=== PATIENT | male | born 1940 | race Caucasian/White ===

== ENCOUNTER 2017-02-04 09:15 | Emergency (ER) | payer MEDICARE, MEDICAID ==
[~2017-02-04] VITALS: Ht 162.6 cm; Wt 87.5 kg
--- NOTE | 2017-02-04 10:03 | NUR ---
Patient discharged to home in stable conditon. Written and verbal after care instructions given. Patient verbalizes understanding of instructions.
== END 2017-02-04 10:04 | disposition home or self-care (01) ==
LOC: ER 09:15
DX: Z13.89 Encounter for screening for other disorder (principal); F17.210 Nicotine dependence, cigarettes, uncomplicated; Z85.038 Personal history of other malignant neoplasm of large intestine; Z92.21 Personal history of antineoplastic chemotherapy
CPT/HCPCS: A4663

== ENCOUNTER 2019-10-14 18:10 | Emergency (ER) | payer MEDICARE, OTHER ==
[~2019-10-14] VITALS: Ht 167.6 cm; Wt 99.8 kg
[2019-10-14] MEDS ORDERED: HYDR-4384 PO (18:27)
--- NOTE | 2019-10-14 18:32 | NUR ---
Dr. Avila at bedside for MSE
[2019-10-14] MEDS ORDERED: MORPHINE SULFATE 4 MG/1 ML DISP.SYRIN IV ONE (18:45)
[2019-10-14 18:48] LABS: BASOPHILS % (AUTO) 0.5 % (0.0-2.0); HEMATOCRIT 37.3 % (36.7-47.1); HEMOGLOBIN 12.4 g/dL (12.5-16.3); LYMPHOCYTES # (AUTO) 0.5 K/uL (20.0-40.0); LYMPHOCYTES % (AUTO) 5.8 % (20.5-51.5); MEAN CORPUSCULAR HEMOGLOBIN 28.1 uug (23.8-33.4); MEAN CORPUSCULAR HGB CONC 33 g/dL (32.5-36.3); MEAN CORPUSCULAR VOLUME 84.3 fL (73.0-96.2); MONOCYTES # (AUTO) 0.6 K/uL (2.0-10.0); MONOCYTES % (AUTO) 7.4 % (0.0-11.0); NEUTROPHILS % (AUTO) 86.3 % (38.5-71.5); PLATELET COUNT (AUTO) 164 K/uL (152-348); RED BLOOD CELL COUNT(AUTO) 4.42 MIL/uL (4.06-5.63); WHITE BLOOD COUNT (AUTO) 8.1 K/uL (3.6-10.2)
[2019-10-14 18:56] LABS: CREATININE 1.2 mg/dL (0.6-1.3); POTASSIUM 4.5 mmol/L (3.5-5.1)
[2019-10-14] MEDS ORDERED: MORPHINE SULFATE 4 MG/1 ML DISP.SYRIN ONE (18:58)
[2019-10-14 19:06] LABS: BILIRUBIN,DIRECT 0.4 mg/dL (0.0-0.2); BILIRUBIN,TOTAL 1.3 mg/dL (0.2-1.0)
[2019-10-14 19:44] LABS: *BILIRUBIN,URIN 1+ (NEGATIVE); *BLOOD, URINE 1+ (NEGATIVE); *CLARITY,URINE CLEAR (CLEAR); *KETONES,URINE 1+ (NEGATIVE); *UROBILINOGEN,URINE >=8.0 E.U./dl (NORMAL); LEUKOCYTE ESTERASE ,URINE NEGATIVE (NEGATIVE); NITRITE, URINE NEGATIVE (NEGATIVE); PH,URINE 5.5 (5.0-8.0); UGLUCOSE NEGATIVE (NEGATIVE)
[2019-10-14 19:45] LABS: *COLOR,URINE AMBER (YELLOW)
[2019-10-14] MEDS ORDERED: SWABABLE VALVE TRANSFER SET EA MC ONE (20:30)
[2019-10-14] MEDS ORDERED: IV NORMAL SALINE 250 ML IV ONE (20:31)
[2019-10-14] MEDS ORDERED: IOHEXOL 350 100 ML INFUS..BTL ONE (20:31)
[2019-10-14 21:50] LABS: BACTERIA,URINE NONE SEEN /HPF (NONE SEEN); SQUAMOUS EPITHELIAL CELL,UR FEW /HPF (NONE SEEN); WBC,URINE 0-3 /HPF (0-3)
[2019-10-14] MEDS ORDERED: KETOROLAC TROMETHAMINE 30 MG INJ ONE (22:24)
[2019-10-14] MEDS ORDERED: KETOROLAC TROMETHAMINE 30 MG INJ IVP ONE (22:30)
--- NOTE | 2019-10-14 22:40 | NUR ---
Patient's outside of ED to take patient home
--- NOTE | 2019-10-14 22:40 | NUR ---
IV removed. Catheter intact and site benign. Pressure and 4x4 gauze applied to site. No bleeding noted. Patient discharged to home in stable condition. Written and verbal after care instructions given. Patient verbalizes understanding of instructions. Stressed follow up or return to ER for worsening s/s. Patient ambulated with steady gait. NAD noted
[2019-10-14 22:41] VITALS: BP 129/66
== END 2019-10-14 22:40 | disposition home or self-care (01) ==
LOC: ER 18:10
DX: M54.9 Dorsalgia, unspecified (principal); R91.8 Other nonspecific abnormal finding of lung field; F17.210 Nicotine dependence, cigarettes, uncomplicated; R94.31 Abnormal electrocardiogram [ECG] [EKG]; Z85.038 Personal history of other malignant neoplasm of large intestine; G89.29 Other chronic pain; M19.90 Unspecified osteoarthritis, unspecified site
CPT/HCPCS: 36415; 70030-TC; 71045; 71275; 83690; 85025; 93005; A4663; J1885; J2270; J7050; Q9967

== ENCOUNTER 2021-02-14 21:55 | Inpatient (IN) | payer MEDICARE, OTHER ==
[~2021-02-14] VITALS: Ht 165.1 cm; Wt 79.4 kg
--- NOTE | 2021-02-14 20:15 | NUR ---
Admitted patient to rehab from [facility].AALOx3.On Ra.No s/s of acute distress noted. Denies pain at this time. Iv noted on Rt hand patent and intact .Blackman catheter in place. Draining well.Assessment done. VsLary Castro notified of patient's admission.Safety measures in place. Call light with in reach. Will continue to monitor.
[~2021-02-14 21:55] MED LIST: HYDR-4384 PO
[2021-02-14] MEDS ORDERED: FINA5TAB11 PO (22:32)
[2021-02-14] MEDS ORDERED: NICO-671 TP (22:32)
[2021-02-14] MEDS ORDERED: ALPR1TAB7 PO (22:32)
[2021-02-14] MEDS ORDERED: HYDR-3972 PO (22:32)
[2021-02-14] MEDS ORDERED: MAGNESIUM HYDROXIDE 30 ML LIQUID UDC PO PRN (22:45)
[2021-02-14] MEDS ORDERED: ZOLPIDEM 5 MG TABLET PO PRN (22:45)
[2021-02-14] MEDS ORDERED: ONDANSETRON 4 MG/2 ML VIAL IV PRN (22:45)
[2021-02-14] MEDS ORDERED: Z GUARD REMEDY PASTE 57 GM TUBE TOP PRN (22:45)
[2021-02-15] MEDS ORDERED: TAMS-3 PO (01:36)
[2021-02-15] MEDS: ALPRAZOLAM 0.5 MG TABLET PO SCH ×2 (02:17→20:37)
--- NOTE | 2021-02-15 03:45 | NUR ---
Patient awake and requesting for his Xanax.Stated he used to take it at bedtime.Patient alson noted with bright red stool x1.Denies pain N.Katlyn Bridges notified new order received noted and carried out.Stool collected for OB and sent to lab.
[2021-02-15 04:00] VITALS: BP 127/64
[2021-02-15] MEDS: PANTOPRAZOLE SODIUM 40 MG TABLET.DR PO SCH (06:28)
[2021-02-15] MEDS ORDERED: ZOLPIDEM 5 MG TABLET PO PRN (06:45)
[2021-02-15 07:47] VITALS: BP 107/71
[2021-02-15 08:00] VITALS: BP 159/77
[2021-02-15 09:08] LABS: HEMATOCRIT 28.5 % (36.7-47.1); MEAN CORPUSCULAR HEMOGLOBIN 28.7 uug (23.8-33.4); PLATELET COUNT (AUTO) 216 K/uL (152-348)
[2021-02-15 09:34] LABS: CARBON DIOXIDE 24 mmol/L (21-32); CHLORIDE 105 mmol/L (98-107); CREATININE 1.8 mg/dL (0.6-1.3); GLUCOSE 86 mg/dL (74-106); MAGNESIUM 1.9 mg/dL (1.8-2.4); PHOSPHOROUS 2.9 mg/dL (2.5-4.9); POTASSIUM 3.7 mmol/L (3.5-5.1); UREA NITROGEN, BLOOD 11 mg/dL (7-18)
[2021-02-15 10:57] LABS: *OCCULT BLOOD STOOL POSITIVE (NEGATIVE)
[2021-02-15 12:44] LABS: TRIGLYCERIDES 168 MG/DL (30-150)
[2021-02-15 12:45] LABS: CHOLESTEROL 138 mg/dL (<200); HDL CHOLESTEROL 21 mg/dL (40-60)
[2021-02-15 15:51] VITALS: BP 145/76
--- NOTE | 2021-02-15 18:18 | NUR ---
Noted with blood clots to BMx2, Dr Zacarias made aware. Denies pain or discomfort. No distress identified. Kept call light within reach. All due meds given. All needs attended. Safety measures maintained. Aspiration precaution maintained. Will endorse for continuity of care.
[2021-02-15] MEDS ORDERED: HYDROCODONE/APAP 5-325MG TABLET PO PRN (19:45)
[2021-02-15 20:00] VITALS: BP 159/77
[2021-02-15] MEDS: DOCUSATE SODIUM 100 MG CAPSULE PO SCH (20:37)
[2021-02-15] MEDS: TAMSULOSIN HCL 0.4 MG CAP.SR.24H PO SCH (20:38)
[2021-02-15] MEDS ORDERED: Medication Not On Formulary EA (Alprazolam (Xanax) 1 MG) PO SCH (21:00)
[2021-02-16 06:02] VITALS: BP 125/63
[2021-02-16] MEDS: PANTOPRAZOLE SODIUM 40 MG TABLET.DR PO SCH (06:06)
--- NOTE | 2021-02-16 06:14 | NUR ---
No signs of bleeding identified during the shift. Denies pain. No distress noted. Kept call light within reach. Frequent visual check. Safety precaution maintained. All due meds given. All needs attended. Will endorse to the next shift for continuity of care.
[2021-02-16 08:00] VITALS: BP 126/69
[2021-02-16] MEDS: NICOTINE 14 MG/24HR PATCH TD SCH (09:45)
[2021-02-16] MEDS: FINASTERIDE 5 MG TABLET PO SCH (09:45)
[2021-02-16 10:35] LABS: HEMATOCRIT 29.5 % (36.7-47.1); MEAN CORPUSCULAR HEMOGLOBIN 28.6 uug (23.8-33.4); MEAN CORPUSCULAR VOLUME 87.7 fL (73.0-96.2); PLATELET COUNT (AUTO) 218 K/uL (152-348)
[2021-02-16 10:48] LABS: IRON, SERUM 37 ug/dL (50-175)
[2021-02-16 11:18] LABS: ALANINE AMINOTRANSFERASE 6 U/L (16-63); ALKALINE PHOSPHATASE 71 U/L (50-136); ASPARTATE AMINOTRANSFERASE 16 U/L (15-37); BILIRUBIN,TOTAL 0.4 mg/dL (0.2-1.0); CARBON DIOXIDE 23 mmol/L (21-32); CHLORIDE 105 mmol/L (98-107); CREATININE 1.8 mg/dL (0.6-1.3); GLUCOSE 118 mg/dL (74-106); MAGNESIUM 2.3 mg/dL (1.8-2.4); PHOSPHOROUS 3.5 mg/dL (2.5-4.9); POTASSIUM 3.4 mmol/L (3.5-5.1); TOTAL PROTEIN, SERUM 7.3 g/dL (6.4-8.2); UREA NITROGEN, BLOOD 14 mg/dL (7-18)
[2021-02-16 11:44] LABS: THYROID STIMULATING HORMONE 1.085 mIU/mL (0.358-3.740)
[2021-02-16] MEDS: SOD FERRIC GLUC COMPLX/SUCROSE 125 MG in IV NORMAL SALINE 100 ML IV SCH (15:19)
--- NOTE | 2021-02-16 15:51 | NUR ---
Nursing - Attends and participated in his therapy, reviewed safety, monitored needs, moser care , urine slightly cloudy , adequate fluid intake.
[2021-02-16 16:47] VITALS: BP 160/82
[2021-02-16 20:00] VITALS: BP 130/57
[2021-02-16] MEDS: ALPRAZOLAM 0.5 MG TABLET PO SCH (20:52)
[2021-02-16] MEDS: DOCUSATE SODIUM 100 MG CAPSULE PO SCH (20:52)
[2021-02-16] MEDS: TAMSULOSIN HCL 0.4 MG CAP.SR.24H PO SCH (20:52)
[2021-02-17 04:48] VITALS: BP 127/62
[2021-02-17] MEDS: PANTOPRAZOLE SODIUM 40 MG TABLET.DR PO SCH (06:27)
[2021-02-17 08:15] VITALS: BP 135/60
[2021-02-17] MEDS: NICOTINE 14 MG/24HR PATCH TD SCH (09:48)
[2021-02-17] MEDS: FINASTERIDE 5 MG TABLET PO SCH (09:48)
--- NOTE | 2021-02-17 13:30 | NUR ---
INDIVIDUALIZED PLAN OF CARE
[2021-02-17] MEDS: SOD FERRIC GLUC COMPLX/SUCROSE 125 MG in IV NORMAL SALINE 100 ML IV SCH (14:10)
[2021-02-17 16:02] VITALS: BP 130/71
[2021-02-17] MEDS: GLUCERNA SHAKE VANILLA 237 ML CAN PO SCH (17:00)
--- NOTE | 2021-02-17 18:16 | NUR ---
Patient in bed alert and oriented x 3 Farsi speaking and able to speak a little Rwandan. Pleasant and cooperative upon assessment. All needs met in a timely manner. All due meds given per MD order. Blackman Catheter intact. Placed call light within reach. Left upper arm IV access intact. Patient in room air with no s/s of distress.
[2021-02-17 20:06] VITALS: BP 143/50
[2021-02-17] MEDS: ALPRAZOLAM 0.5 MG TABLET PO SCH (20:15)
[2021-02-17] MEDS: TAMSULOSIN HCL 0.4 MG CAP.SR.24H PO SCH (20:15)
[2021-02-17] MEDS: DOCUSATE SODIUM 100 MG CAPSULE PO SCH (20:15)
[2021-02-18 04:06] VITALS: BP 126/44
[2021-02-18] MEDS: PANTOPRAZOLE SODIUM 40 MG TABLET.DR PO SCH (06:01)
[2021-02-18 06:49] LABS: HEMATOCRIT 28.6 % (36.7-47.1); MEAN CORPUSCULAR HEMOGLOBIN 28.6 uug (23.8-33.4); MEAN CORPUSCULAR VOLUME 86.7 fL (73.0-96.2); PLATELET COUNT (AUTO) 238 K/uL (152-348)
[2021-02-18 07:05] LABS: ALANINE AMINOTRANSFERASE 6 U/L (16-63); ALKALINE PHOSPHATASE 73 U/L (50-136); ASPARTATE AMINOTRANSFERASE 16 U/L (15-37); BILIRUBIN,TOTAL 0.4 mg/dL (0.2-1.0); CARBON DIOXIDE 28 mmol/L (21-32); CHLORIDE 105 mmol/L (98-107); CREATININE 1.7 mg/dL (0.6-1.3); GLUCOSE 86 mg/dL (74-106); POTASSIUM 3.6 mmol/L (3.5-5.1); TOTAL PROTEIN, SERUM 7.2 g/dL (6.4-8.2); UREA NITROGEN, BLOOD 15 mg/dL (7-18)
[2021-02-18 08:00] VITALS: BP 110/49
[2021-02-18] MEDS: FINASTERIDE 5 MG TABLET PO SCH (11:17)
[2021-02-18] MEDS: NICOTINE 14 MG/24HR PATCH TD SCH (11:17)
[2021-02-18] MEDS: GLUCERNA SHAKE VANILLA 237 ML CAN PO SCH ×2 (11:17→16:37)
[2021-02-18] MEDS: SOD FERRIC GLUC COMPLX/SUCROSE 125 MG in IV NORMAL SALINE 100 ML IV SCH (14:00)
[2021-02-18 16:00] VITALS: BP 145/67
--- NOTE | 2021-02-18 16:32 | NUR ---
unable to administer 1400 iron IV unable to flush midline
--- NOTE | 2021-02-18 16:33 | NUR ---
midline nurse coming at 1800 will have her assess the line
[2021-02-18] MEDS: TAMSULOSIN HCL 0.4 MG CAP.SR.24H PO SCH (20:09)
[2021-02-18] MEDS: ALPRAZOLAM 0.5 MG TABLET PO SCH (20:09)
[2021-02-18] MEDS: DOCUSATE SODIUM 100 MG CAPSULE PO SCH (20:09)
[2021-02-18 20:35] VITALS: BP 148/75
[2021-02-19 04:44] VITALS: BP 115/59
[2021-02-19] MEDS: PANTOPRAZOLE SODIUM 40 MG TABLET.DR PO SCH (06:01)
[2021-02-19 08:00] VITALS: BP 114/70
--- NOTE | 2021-02-19 08:00 | NUR ---
Received awake and alert. No acute distress. GALILEO midline noted intact. Denies pain or sob. Comfortable. Call light in reach. Safety precautions in place. Will cont to monitor.
[2021-02-19] MEDS: NICOTINE 14 MG/24HR PATCH TD SCH (08:43)
[2021-02-19] MEDS: FINASTERIDE 5 MG TABLET PO SCH (08:44)
[2021-02-19] MEDS: GLUCERNA SHAKE VANILLA 237 ML CAN PO SCH ×2 (08:44→17:09)
[2021-02-19] MEDS: SOD FERRIC GLUC COMPLX/SUCROSE 125 MG in IV NORMAL SALINE 100 ML IV SCH (14:46)
[2021-02-19 16:21] VITALS: BP 127/79
--- NOTE | 2021-02-19 18:22 | NUR ---
Resting in bed. No acute distress. GALILEO midline intact and patent. Spoke with dtalexis Fields today and updated on condition. Wanted to talk to Dr. Bethea re discharge, MD aware and phone number provided. Pt is comfortably watching tv. Safety precautions in reach. Kept comfortable. Call light in reach.
[2021-02-19 20:00] VITALS: BP 130/64
--- NOTE | 2021-02-19 20:00 | NUR ---
PATIENT AWAKE IN BED. WATCHING TV. A/O X3. DENIES PAIN. DENIES SOB. VS WNL. MID-LINE NOTED TO RIGHT UPPER ARM. CALL LIGHT IN REACH. ALL NEEDS ATTENDED. WILL CONTINUE TO MONITOR AND ASSESS.
[2021-02-19] MEDS: TAMSULOSIN HCL 0.4 MG CAP.SR.24H PO SCH (20:17)
[2021-02-19] MEDS: DOCUSATE SODIUM 100 MG CAPSULE PO SCH (20:17)
[2021-02-19] MEDS: ALPRAZOLAM 0.5 MG TABLET PO SCH (20:17)
[2021-02-20 04:00] VITALS: BP 115/50
--- NOTE | 2021-02-20 05:19 | NUR ---
PATIENT ASLEEP IN BED. SLEPT WELL THROUGHOUT THE NIGHT. CALL LIGHT IN REACH. ALL NEEDS ATTENDED.
[2021-02-20] MEDS: PANTOPRAZOLE SODIUM 40 MG TABLET.DR PO SCH (06:11)
[2021-02-20 08:00] VITALS: BP 121/62
[2021-02-20] MEDS: NICOTINE 14 MG/24HR PATCH TD SCH (08:35)
[2021-02-20] MEDS: FINASTERIDE 5 MG TABLET PO SCH (08:36)
[2021-02-20] MEDS: GLUCERNA SHAKE VANILLA 237 ML CAN PO SCH ×2 (09:50→16:26)
[2021-02-20] MEDS: SOD FERRIC GLUC COMPLX/SUCROSE 125 MG in IV NORMAL SALINE 100 ML IV SCH (14:27)
--- NOTE | 2021-02-20 15:00 | NUR ---
RESTING TOLERATED PHYSICAL/OT THERAPIES ORDERED DENIES DISCOMFORTS NOT IN DISTRESS AT THIS TIME CALL LIGHTS AND PERSONAL BELONGINGS ARE WITHIN EASY REACH WILL CONTINUE TO OBSERVE
[2021-02-20 16:00] VITALS: BP 133/72
[2021-02-20] MEDS: TAMSULOSIN HCL 0.4 MG CAP.SR.24H PO SCH (20:43)
[2021-02-20] MEDS: DOCUSATE SODIUM 100 MG CAPSULE PO SCH (20:43)
[2021-02-20] MEDS: ALPRAZOLAM 0.5 MG TABLET PO SCH (20:43)
[2021-02-20 20:55] VITALS: BP 133/76
[2021-02-21] MEDS: HYDROCODONE/APAP 5-325MG TABLET PO PRN ×3 (02:02→18:20)
[2021-02-21 04:50] VITALS: BP 125/45
[2021-02-21] MEDS: PANTOPRAZOLE SODIUM 40 MG TABLET.DR PO SCH (05:46)
--- NOTE | 2021-02-21 07:44 | NUR ---
RECEIVED SLEEPING EASILY AROUSABLE ON ROUNDS HE IS ON O2 ON AND OFF NO S/S OF RESPIRATORY DISTRESS AT THIS TIME MUNOZ CATH IS INTACT AND PATENT NO HEMATURIA CALL LIFGTS AND PERSONAL BELONGINGS ARE WITHIN EASY REACH WILL CONTINUE TO OBSERVE.
[2021-02-21] MEDS: FINASTERIDE 5 MG TABLET PO SCH (08:17)
[2021-02-21] MEDS: NICOTINE 14 MG/24HR PATCH TD SCH (08:17)
[2021-02-21] MEDS: GLUCERNA SHAKE VANILLA 237 ML CAN PO SCH ×2 (08:18→17:45)
[2021-02-21 12:00] VITALS: BP 105/61
[2021-02-21 15:38] VITALS: BP 132/76
--- NOTE | 2021-02-21 17:44 | NUR ---
INTERDISCIPLINARY TEAM CONFERENCE
--- NOTE | 2021-02-21 18:20 | NUR ---
C/O GENERALISED PAIN MEDICATED WITH NORCO ORDERED MADE COMFORTABLE WILL OBSERVE.
[2021-02-21 20:00] VITALS: BP 123/69
[2021-02-21] MEDS: TAMSULOSIN HCL 0.4 MG CAP.SR.24H PO SCH (20:37)
[2021-02-21] MEDS: DOCUSATE SODIUM 100 MG CAPSULE PO SCH (20:37)
[2021-02-21] MEDS: ALPRAZOLAM 0.5 MG TABLET PO SCH (20:37)
[2021-02-22 04:28] VITALS: BP 95/55
[2021-02-22] MEDS: PANTOPRAZOLE SODIUM 40 MG TABLET.DR PO SCH (05:50)
[2021-02-22 07:57] VITALS: BP 114/66
[2021-02-22] MEDS: FINASTERIDE 5 MG TABLET PO SCH (08:33)
[2021-02-22] MEDS: GLUCERNA SHAKE VANILLA 237 ML CAN PO SCH ×2 (08:34→17:49)
[2021-02-22] MEDS: NICOTINE 14 MG/24HR PATCH TD SCH (08:34)
[2021-02-22] MEDS: HYDROCODONE/APAP 5-325MG TABLET PO PRN ×2 (08:47→13:06)
[2021-02-22] MEDS: ACETAMINOPHEN 325 MG TABLET PO PRN ×2 (11:37→17:59)
[2021-02-22 16:00] VITALS: BP 96/56
[2021-02-22 20:00] VITALS: BP 102/55
[2021-02-22] MEDS: TAMSULOSIN HCL 0.4 MG CAP.SR.24H PO SCH (20:39)
[2021-02-22] MEDS: DOCUSATE SODIUM 100 MG CAPSULE PO SCH (20:39)
[2021-02-22] MEDS: ALPRAZOLAM 0.5 MG TABLET PO SCH (20:39)
[2021-02-23 04:00] VITALS: BP 132/69
--- NOTE | 2021-02-23 04:47 | NUR ---
Patient Blackman catheter leaking, patient made aware and but refused to have it change at this time stating "I want to sleep, that can wait till later". Will endorse to oncoming nurse.
[2021-02-23] MEDS: PANTOPRAZOLE SODIUM 40 MG TABLET.DR PO SCH (06:00)
[2021-02-23 07:12] LABS: HEMATOCRIT 28.5 % (36.7-47.1); MEAN CORPUSCULAR HEMOGLOBIN 28.6 uug (23.8-33.4); MEAN CORPUSCULAR VOLUME 86.9 fL (73.0-96.2); PLATELET COUNT (AUTO) 209 K/uL (152-348)
[2021-02-23 07:45] LABS: ALANINE AMINOTRANSFERASE 11 U/L (16-63); ALKALINE PHOSPHATASE 137 U/L (50-136); ASPARTATE AMINOTRANSFERASE 23 U/L (15-37); BILIRUBIN,TOTAL 0.5 mg/dL (0.2-1.0); CARBON DIOXIDE 24 mmol/L (21-32); CHLORIDE 100 mmol/L (98-107); CREATININE 1.8 mg/dL (0.6-1.3); GLUCOSE 82 mg/dL (74-106); POTASSIUM 4.4 mmol/L (3.5-5.1); TOTAL PROTEIN, SERUM 7.4 g/dL (6.4-8.2); UREA NITROGEN, BLOOD 22 mg/dL (7-18)
[2021-02-23 08:00] VITALS: BP 111/65
[2021-02-23] MEDS: FINASTERIDE 5 MG TABLET PO SCH (08:56)
[2021-02-23] MEDS: NICOTINE 14 MG/24HR PATCH TD SCH (08:56)
[2021-02-23] MEDS: GLUCERNA SHAKE VANILLA 237 ML CAN PO SCH ×2 (08:57→17:05)
[2021-02-23 14:07] LABS: *BILIRUBIN,URIN NEGATIVE (NEGATIVE); *BLOOD, URINE 3+ (NEGATIVE); *CLARITY,URINE CLEAR (CLEAR); *COLOR,URINE YELLOW (YELLOW); *KETONES,URINE NEGATIVE (NEGATIVE); *UROBILINOGEN,URINE 0.2 E.U./dl (NORMAL); LEUKOCYTE ESTERASE ,URINE TRACE (NEGATIVE); NITRITE, URINE NEGATIVE (NEGATIVE); PH,URINE 5.5 (5.0-8.0); UGLUCOSE NEGATIVE (NEGATIVE)
[2021-02-23] MEDS: ACETAMINOPHEN 325 MG TABLET PO PRN (14:13)
[2021-02-23 16:00] VITALS: BP 126/55
[2021-02-23 20:00] VITALS: BP_SYST 134; BP_SYST 98; BP_DIAS 57; BP_DIAS 71
[2021-02-23] MEDS: DOCUSATE SODIUM 100 MG CAPSULE PO SCH (20:16)
[2021-02-23] MEDS: TAMSULOSIN HCL 0.4 MG CAP.SR.24H PO SCH (20:16)
[2021-02-23] MEDS: ALPRAZOLAM 0.5 MG TABLET PO SCH (20:16)
[2021-02-23 20:44] LABS: BACTERIA,URINE FEW /HPF (NONE SEEN); RBC,URINE 50-80 /HPF (0-3); SQUAMOUS EPITHELIAL CELL,UR FEW /HPF (NONE SEEN)
[2021-02-23 20:45] LABS: YEAST,URINE MODERATE /HPF (NONE SEEN)
[2021-02-24 04:00] VITALS: BP 114/60
--- NOTE | 2021-02-24 05:58 | NUR ---
Pt slept throughout the night, no respiratory distress noted. Easily arousable for care. FC noted to be leaking, pt refused to have FC flushed. Risks and benefits explained, pt still refused. All needs attended. Call light placed within reach. Frequent visual checks done. Will endorse to next shift.
[2021-02-24] MEDS: PANTOPRAZOLE SODIUM 40 MG TABLET.DR PO SCH (06:04)
[2021-02-24] MEDS: GLUCERNA SHAKE VANILLA 237 ML CAN PO SCH ×2 (08:37→17:48)
[2021-02-24] MEDS: NICOTINE 14 MG/24HR PATCH TD SCH (08:38)
[2021-02-24] MEDS: FINASTERIDE 5 MG TABLET PO SCH (08:38)
[2021-02-24] MEDS: HYDROCODONE/APAP 5-325MG TABLET PO PRN ×2 (08:38→12:47)
[2021-02-24 08:56] VITALS: BP 89/47
[2021-02-24] MEDS ORDERED: IV NS 1000 ML 1,000 ML IV ONE (11:45)
[2021-02-24] MEDS ORDERED: MIDODRINE HCL 5 MG TABLET PO PRN (11:45)
[2021-02-24] MEDS: CEFTRIAXONE 1 G in IV DEXTROSE 5% 50 ML IV SCH (12:46)
[2021-02-24] MEDS ORDERED: FLUCONAZOLE 200 MG TABLET PO ONE (13:00)
--- NOTE | 2021-02-24 15:00 | NUR ---
PT noted with new order for NS 0.9% bolus , Rocephin 1 GM IV , Diflucan [address] Lovelace pt noted with Mild hematuria in Blackman, restart CBI will started on midodrine as needed , PT refused labs for today urine was collected and send to lab . Medicated with [place] as order for C/O of groin pain.PT noted with urinary retention F/C change he tolerated procedure well. Will continue to monitor for safety and comfort
[2021-02-24 15:41] LABS: *BILIRUBIN,URIN NEGATIVE (NEGATIVE); *BLOOD, URINE 3+ (NEGATIVE); *CLARITY,URINE BLOODY (CLEAR); *COLOR,URINE RED (YELLOW); *KETONES,URINE NEGATIVE (NEGATIVE); *UROBILINOGEN,URINE 0.2 E.U./dl (NORMAL); LEUKOCYTE ESTERASE ,URINE 3+ (NEGATIVE); NITRITE, URINE NEGATIVE (NEGATIVE); UGLUCOSE NEGATIVE (NEGATIVE)
[2021-02-24 15:45] LABS: RBC,URINE TNTC /HPF (0-3)
[2021-02-24 15:47] LABS: BACTERIA,URINE MODERATE /HPF (NONE SEEN); SQUAMOUS EPITHELIAL CELL,UR FEW /HPF (NONE SEEN); WBC,URINE TNTC /HPF (0-3)
[2021-02-24 16:02] VITALS: BP 120/61
[2021-02-24 20:00] VITALS: BP 106/51
[2021-02-24] MEDS: TAMSULOSIN HCL 0.4 MG CAP.SR.24H PO SCH (20:18)
[2021-02-24] MEDS: ALPRAZOLAM 0.5 MG TABLET PO SCH (20:18)
[2021-02-24] MEDS: DOCUSATE SODIUM 100 MG CAPSULE PO SCH (20:18)
[2021-02-25] MEDS: HYDROCODONE/APAP 5-325MG TABLET PO PRN ×2 (00:29→16:38)
[2021-02-25 04:03] VITALS: BP 115/65
[2021-02-25] MEDS: PANTOPRAZOLE SODIUM 40 MG TABLET.DR PO SCH (06:01)
--- NOTE | 2021-02-25 06:33 | NUR ---
Pt found on the floor lying down on his left side. He stated that he landed on his side and might have hit his head. No skin issues noted. Vital signs as follows BP 150/79, SD 98, RR 20, Temp 97.8 and O2 sat 97%. Able to move all extremities, denies pain and discomfort. Dr. Castro made aware. Addendum: 02/25/21 at 0713 by JOAQUÍN REED RN Daughter/ABIGAIL Diamond White informed of incident and will come visit pt around 0930H today.
[2021-02-25 07:55] VITALS: BP 115/78
[2021-02-25] MEDS: GLUCERNA SHAKE VANILLA 237 ML CAN PO SCH ×2 (10:55→16:40)
[2021-02-25] MEDS: FINASTERIDE 5 MG TABLET PO SCH (10:55)
[2021-02-25] MEDS: NICOTINE 14 MG/24HR PATCH TD SCH (10:56)
[2021-02-25] MEDS: CEFTRIAXONE 1 G in IV DEXTROSE 5% 50 ML IV SCH (12:32)
[2021-02-25 15:04] VITALS: BP 104/56
--- NOTE | 2021-02-25 20:25 | NUR ---
BP 75/44 LA, 67/34 Left leg. Asymptomatic. Autumn Carr made aware and requested repeat BP reading
--- NOTE | 2021-02-25 20:35 | NUR ---
SBP at this time 78/48, HR 71 bpm. Autumn Carr aware with new order of IV bolus, antibiotics and multiple lab orders.
[2021-02-25] MEDS ORDERED: IV NS 1000 ML 1,000 ML IV ONE (20:45)
--- NOTE | 2021-02-25 20:56 | NUR ---
IV bolus ordered and initiated as ordered.
[2021-02-25] MEDS: ALPRAZOLAM 0.5 MG TABLET PO SCH (21:00)
[2021-02-25] MEDS: DOCUSATE SODIUM 100 MG CAPSULE PO SCH (21:04)
[2021-02-25] MEDS: TAMSULOSIN HCL 0.4 MG CAP.SR.24H PO SCH (21:04)
[2021-02-25] MEDS: IV NS 1000 ML 1,000 ML IV PRN (21:12)
[2021-02-25] MEDS ORDERED: VANCOMYCIN IV 1,250 MG in IV DEXTROSE 5% 250 ML IV ONE (21:15)
[2021-02-25 21:37] LABS: HEMATOCRIT 25.1 % (36.7-47.1)
[2021-02-25] MEDS ORDERED: PIPERACILLIN SODIUM/TAZOBACTAM 3.375 G in IV DEXTROSE 5% 50 ML IV SCH (22:00)
[2021-02-25] MEDS ORDERED: PIPERACILLIN SODIUM/TAZO 3.375 GM VIAL ONE (22:01)
[2021-02-25] MEDS ORDERED: VANCOMYCIN 1000 MG VIAL ONE (22:02)
--- NOTE | 2021-02-25 23:13 | NUR ---
BP 112/59. IVF Bolus and IV ATB infusing at this time as ordered. Patient sleeping comfortably.
[2021-02-25 23:15] VITALS: BP 112/59
[2021-02-25 23:21] LABS: CARBON DIOXIDE 25 mmol/L (21-32); CHLORIDE 101 mmol/L (98-107); CREATININE 2.4 mg/dL (0.6-1.3); GLUCOSE 99 mg/dL (74-106); POTASSIUM 5.1 mmol/L (3.5-5.1); UREA NITROGEN, BLOOD 28 mg/dL (7-18)
[2021-02-25 23:22] LABS: HEMATOCRIT 21.7 % (36.7-47.1); PLATELET COUNT (AUTO) 140 K/uL (152-348)
[2021-02-25 23:24] LABS: MEAN CORPUSCULAR HEMOGLOBIN 28.9 uug (23.8-33.4); MEAN CORPUSCULAR VOLUME 87.9 fL (73.0-96.2)
[2021-02-25 23:58] LABS: HEMATOCRIT 21.7 % (36.7-47.1)
--- NOTE | 2021-02-26 | NUR ---
Lab relayed Hgb result 7.2. Starla Castro aware with no new order noted.
[2021-02-26] MEDS: PIPERACILLIN SODIUM/TAZOBACTAM 3.375 G in IV DEXTROSE 5% 50 ML IV SCH ×2 (00:35→08:57)
[2021-02-26 04:06] VITALS: BP 151/70
[2021-02-26] MEDS: PANTOPRAZOLE SODIUM 40 MG TABLET.DR PO SCH (06:38)
--- NOTE | 2021-02-26 06:45 | NUR ---
Zosyn IVPB was not given/infused at 0600 as scheduled due to late infusion on the ist/initial dose. Will endorse to oncoming nurse accordingly and coordinate with pharmacy.
[2021-02-26 07:01] LABS: MEAN CORPUSCULAR VOLUME 87.3 fL (73.0-96.2); PLATELET COUNT (AUTO) 134 K/uL (152-348)
[2021-02-26 07:03] LABS: CARBON DIOXIDE 24 mmol/L (21-32); CHLORIDE 101 mmol/L (98-107); CREATININE 2.5 mg/dL (0.6-1.3); GLUCOSE 90 mg/dL (74-106); POTASSIUM 5.5 mmol/L (3.5-5.1); UREA NITROGEN, BLOOD 28 mg/dL (7-18)
[2021-02-26 07:07] LABS: ALANINE AMINOTRANSFERASE < 6 U/L (16-63); ALKALINE PHOSPHATASE 97 U/L (50-136); ASPARTATE AMINOTRANSFERASE 18 U/L (15-37); BILIRUBIN,TOTAL 0.4 mg/dL (0.2-1.0); MAGNESIUM 2.1 mg/dL (1.8-2.4); PHOSPHOROUS 3.6 mg/dL (2.5-4.9)
--- NOTE | 2021-02-26 07:30 | NUR ---
received patient laying in bed in no apparent distress. patient is alert and oriented x4, currently on iv ns at 100cc, midline to right upper arm in place and patent. patient with rr even and non-labored, 0 sob at this time. f/c in place and patent draining slight pink urine, sedimentation noted to bag, moser flushed carefully, no resistance noted at this time. v/s wnl at this time. reminded patient to use call light for assistance, call light within reach, side rails up x2.
[2021-02-26 07:33] VITALS: BP 112/61
[2021-02-26] MEDS: GLUCERNA SHAKE VANILLA 237 ML CAN PO SCH ×2 (08:56→17:13)
[2021-02-26] MEDS: NICOTINE 14 MG/24HR PATCH TD SCH (08:57)
[2021-02-26] MEDS: FINASTERIDE 5 MG TABLET PO SCH (08:57)
[2021-02-26] MEDS: IV NS 1000 ML 1,000 ML IV PRN (12:08)
[2021-02-26 15:08] VITALS: BP 128/65
--- NOTE | 2021-02-26 15:12 | NUR ---
Patient with t. 99.9 at this time, Dr. tSaley aware, cooling measures started.
[2021-02-26 15:24] LABS: HEMATOCRIT 23.8 % (36.7-47.1)
[2021-02-26] MEDS: ACETAMINOPHEN 325 MG TABLET PO PRN ×2 (16:38→20:23)
--- NOTE | 2021-02-26 19:35 | NUR ---
Blackman catheter intact and patent with pinkish milky colored urine output. Irrigated with NS till clear. Patient barely tolerated procedure. Patient very irritable, rude, uncooperative with care. Will continue to monitor.
[2021-02-26 20:00] VITALS: BP 102/48
[2021-02-26] MEDS: PIPERACILLIN SODIUM/TAZOBACTAM 3.375 G in IV DEXTROSE 5% 100 ML IV SCH (20:22)
[2021-02-26] MEDS: TAMSULOSIN HCL 0.4 MG CAP.SR.24H PO SCH (20:23)
[2021-02-26] MEDS: ALPRAZOLAM 0.5 MG TABLET PO SCH (20:23)
[2021-02-26] MEDS: DOCUSATE SODIUM 100 MG CAPSULE PO SCH (20:23)
[2021-02-26 23:16] LABS: HEMATOCRIT 24.5 % (36.7-47.1)
--- NOTE | 2021-02-27 00:53 | NUR ---
Urine collected and sent to lab as ordered.
[2021-02-27] MEDS: IV NS 1000 ML 1,000 ML IV PRN (03:13)
[2021-02-27 05:30] LABS: *BILIRUBIN,URIN NEGATIVE (NEGATIVE); *BLOOD, URINE 3+ (NEGATIVE); *CLARITY,URINE CLOUDY (CLEAR); *COLOR,URINE YELLOW (YELLOW); *KETONES,URINE NEGATIVE (NEGATIVE); *UROBILINOGEN,URINE 0.2 E.U./dl (NORMAL); LEUKOCYTE ESTERASE ,URINE 3+ (NEGATIVE); NITRITE, URINE NEGATIVE (NEGATIVE); PH,URINE 5.5 (5.0-8.0); UGLUCOSE NEGATIVE (NEGATIVE)
[2021-02-27] MEDS: PANTOPRAZOLE SODIUM 40 MG TABLET.DR PO SCH (05:40)
[2021-02-27 06:04] VITALS: BP 106/55
[2021-02-27 06:24] LABS: BACTERIA,URINE MANY /HPF (NONE SEEN); RBC,URINE TNTC /HPF (0-3); SQUAMOUS EPITHELIAL CELL,UR MODERATE /HPF (NONE SEEN); WBC,URINE TNTC /HPF (0-3)
[2021-02-27 06:48] LABS: HEMATOCRIT 24.3 % (36.7-47.1); MEAN CORPUSCULAR HEMOGLOBIN 28.2 uug (23.8-33.4); MEAN CORPUSCULAR VOLUME 87.2 fL (73.0-96.2); PLATELET COUNT (AUTO) 141 K/uL (152-348)
[2021-02-27 06:59] LABS: CARBON DIOXIDE 23 mmol/L (21-32); CHLORIDE 105 mmol/L (98-107); CREATININE 2.4 mg/dL (0.6-1.3); GLUCOSE 100 mg/dL (74-106); POTASSIUM 4.7 mmol/L (3.5-5.1); UREA NITROGEN, BLOOD 26 mg/dL (7-18)
[2021-02-27 07:16] LABS: IRON, SERUM 17 ug/dL (50-175)
[2021-02-27 07:30] LABS: FERRITIN 429 ng/mL (26-388)
[2021-02-27 08:00] VITALS: BP 149/48
[2021-02-27] MEDS ORDERED: VANCOMYCIN IV 1,000 MG in IV DEXTROSE 5% 250 ML IV ONE (08:00)
[2021-02-27] MEDS: NICOTINE 14 MG/24HR PATCH TD SCH (08:11)
[2021-02-27] MEDS: GLUCERNA SHAKE VANILLA 237 ML CAN PO SCH (08:11)
--- NOTE | 2021-02-27 09:00 | NUR ---
Received patient laying in bed in no apparent distress. patient is alert and oriented x4 Farci and Kinyarwanda speaking, currently on IV NS 0.9% at 100cc ATB TX with Vancomycin and Zosyn , midline to right upper arm in place and patent. patient with respirations even and non-labored, no sob at this time. f/c in place and patent draining slight pink urine, sedimentation noted to bag, v/s WNL at this time. reminded patient to use call light for assistance, call light within reach, side rails up x2 .
[2021-02-27] MEDS: PIPERACILLIN SODIUM/TAZOBACTAM 3.375 G in IV DEXTROSE 5% 100 ML IV SCH ×2 (10:02→18:20)
[2021-02-27] MEDS: ACETAMINOPHEN 325 MG TABLET PO PRN (13:40)
[2021-02-27 13:53] LABS: HEMATOCRIT 25.3 % (36.7-47.1)
[2021-02-27 16:00] VITALS: BP 89/50
[2021-02-27] MEDS: ENSURE ENLIVE (VAN) 240 ML LIQUID PO SCH (18:21)
[2021-02-27] MEDS: SOD FERRIC GLUC COMPLX/SUCROSE 125 MG in IV NORMAL SALINE 100 ML IV SCH (19:22)
[2021-02-27 20:00] VITALS: BP 116/55
[2021-02-27] MEDS: TAMSULOSIN HCL 0.4 MG CAP.SR.24H PO SCH (20:27)
[2021-02-27] MEDS: DOCUSATE SODIUM 100 MG CAPSULE PO SCH (20:28)
[2021-02-27] MEDS: ALPRAZOLAM 0.5 MG TABLET PO SCH (20:28)
[2021-02-27 23:34] LABS: HEMATOCRIT 24.2 % (36.7-47.1)
[2021-02-28] MEDS: PIPERACILLIN SODIUM/TAZOBACTAM 3.375 G in IV DEXTROSE 5% 100 ML IV SCH ×2 (01:27→09:43)
--- NOTE | 2021-02-28 03:00 | NUR ---
PATIENT ASLEEP IN BED. ZOSYN UNABLE TO INFUSE AT THIS TIME, RN AT BEDSIDE, UNABLE TO FLUSH MID-LINE, RESISTANCE NOTED. GAS LEAK INSPECTOR NOTIFIED, WILL NOTIFY RN LABORATORY ANIMAL FACILITY SUPERVISOR FOR MID-LINE NURSE.
[2021-02-28] MEDS: ACETAMINOPHEN 325 MG TABLET PO PRN (03:24)
[2021-02-28 04:08] VITALS: BP 123/71
[2021-02-28] MEDS: PANTOPRAZOLE SODIUM 40 MG TABLET.DR PO SCH (06:07)
[2021-02-28 08:00] VITALS: BP 125/63
--- NOTE | 2021-02-28 08:00 | NUR ---
Pt received awake, calm, A/O x3. Pt denies discomfort and pain, moser is draining. Right arm midline is clogged, waiting for a new placement. Side rails are up and call light is in reach.
[2021-02-28] MEDS: ENSURE ENLIVE (VAN) 240 ML LIQUID PO SCH ×2 (09:00→13:00)
[2021-02-28] MEDS: NICOTINE 14 MG/24HR PATCH TD SCH (09:43)
--- NOTE | 2021-02-28 11:15 | NUR ---
INTERDISCIPLINARY TEAM CONFERENCE
[2021-02-28] MEDS: SOD FERRIC GLUC COMPLX/SUCROSE 125 MG in IV NORMAL SALINE 100 ML IV SCH (14:17)
[2021-02-28 16:00] VITALS: BP 134/60
--- NOTE | 2021-02-28 18:03 | NUR ---
Pt is being discharged home by ambulance. Discharge instructions given. Pt was shown how to empty the Blackman bag. pt is made aware that a home health nurse will visit to assess home safety. Prescription medications were called to patient's pharmacy.
== END 2021-02-28 18:19 | disposition home health service (06) | DRG 947 ==
LOC: UNDOADMIN 21:55 → TELE3 21:55
PROVIDERS: ADMIT Physical Medicine & Rehabilitation Pain Medicine; ATTEND Physical Medicine & Rehabilitation Pain Medicine
PROC: 05H933Z Insertion of Infusion Device into Right Brachial Vein, Percutaneous Approach (ICD-10-PCS; principal; 2021-02-18)
PROC: 05HC33Z Insertion of Infusion Device into Left Basilic Vein, Percutaneous Approach (ICD-10-PCS; 2021-02-28)
DX: R53.1 Weakness (principal); G92.8 Other toxic encephalopathy; N17.0 Acute kidney failure with tubular necrosis; E43 Unspecified severe protein-calorie malnutrition; C18.7 Malignant neoplasm of sigmoid colon; N13.30 Unspecified hydronephrosis; I13.0 Hypertensive heart and chronic kidney disease with heart failure and stage 1 through stage 4 chronic kidney disease, or unspecified chronic kidney disease; C78.00 Secondary malignant neoplasm of unspecified lung; D68.59 Other primary thrombophilia; N28.1 Cyst of kidney, acquired; N18.9 Chronic kidney disease, unspecified; Z85.028 Personal history of other malignant neoplasm of stomach; I50.9 Heart failure, unspecified; D50.9 Iron deficiency anemia, unspecified; J44.9 Chronic obstructive pulmonary disease, unspecified; D69.6 Thrombocytopenia, unspecified; F03.90 Unspecified dementia, unspecified severity, without behavioral disturbance, psychotic disturbance, mood disturbance, and anxiety; F17.210 Nicotine dependence, cigarettes, uncomplicated; F32.A Depression, unspecified; F41.9 Anxiety disorder, unspecified; K83.8 Other specified diseases of biliary tract; N32.0 Bladder-neck obstruction; R29.6 Repeated falls; Z68.29 Body mass index [BMI] 29.0-29.9, adult; E66.9 Obesity, unspecified; Z87.440 Personal history of urinary (tract) infections; Z95.3 Presence of xenogenic heart valve; N40.1 Benign prostatic hyperplasia with lower urinary tract symptoms; R31.9 Hematuria, unspecified; Z91.81 History of falling; K21.9 Gastro-esophageal reflux disease without esophagitis; R53.81 Other malaise; R90.82 White matter disease, unspecified; R26.2 Difficulty in walking, not elsewhere classified; R97.20 Elevated prostate specific antigen [PSA]
CPT/HCPCS: 36415; 70450; 71045; 73501; 82378; 83550; 83735; 84100; 84443; 85018; 85025; 87040; 87086; 93307; 97161; 97535-GO-CO; A4217; A6209; J0696; J2543; J2916; J3370; J3490; J7030; J7050; J7060

== ENCOUNTER → 2021-03-05 | Emergency (ER) | payer MEDICARE, OTHER ==
[~2021-03-05] MED LIST changes: +ALPR1TAB7 PO; +FINA5TAB11 PO; +HYDR-3972 PO; -HYDR-4384 PO; +NICO-671 TP; +TAMS-3 PO
== END | disposition left against medical advice (07) ==
LOC: ER 16:17
DX: Z53.21 Procedure and treatment not carried out due to patient leaving prior to being seen by health care provider (principal)